=== PATIENT | male | born 1960 | race Caucasian/White ===

== ENCOUNTER 2020-05-25 08:21 | Inpatient (IN) ==
[2020-05-25] MEDS ORDERED: IOPAMIDOL 100 ML BOTTLE IV ONE ×2 (08:22→13:23)
[2020-05-25] MEDS ORDERED: fentaNYL 100 MCG/2 ML VIAL IV ONE (08:46)
[2020-05-25] MEDS ORDERED: ONDANSETRON 4 MG/2 ML VIAL IV ONE (08:46)
[2020-05-25] MEDS ORDERED: 0.9 % SODIUM CHLORIDE 1,000 ML IV ONE (08:46)
--- NOTE | 2020-05-25 08:50 | Emergency Department Note ---
Abdominal Pain HPI General Chief Complaint: Abdominal Pain Stated Complaint: my stomach hurts Time Seen by Provider: 05/25/20 08:24 Source: patient Mode of arrival: ambulatory Limitations: no limitations History of Present Illness HPI Narrative: Narrative: 60-year-old male no medical problems presents to the emergency department with generalized abdominal pain. Says not localized to one area says more in the center start in the epigastrium going down to his umbilicus. Is never had any abdominal surgeries. He does not take any medications. He does drink about 3-5 beers daily. He says never had any liver issues as far as he knows. He has no nausea no vomiting denies any fevers. Did have chills. Said the pain all started this morning when he woke up. Says it is a 6 out of 10 wrenching pain nonradiating. Otherwise no other complaints at this time including no fevers, chills, nausea, vomiting, headache, blurry vision, neck pain, back pain, chest pain, shortness of breath, changes in bowel movements, pain with urination, pain or tingling going down the arms or legs or generalized weakness Related Data Allergies Allergy/AdvReac Type Severity Reaction Status Date / Time No Known Drug Allergies Allergy Verified 07/24/19 07:52 Review of Systems ROS ROS Narrative: Narrative: All systems ED: reviewed and negative except as stated. [facility] Narrative Patient History Narrative: Narrative: Medical/Surgical/Family History All Active Problems (Updated 05/25/20 @ 08:50 by Get Cash DO) Abdominal pain (Acute) Thoracic degenerative disc disease (Chronic) Lumbar degenerative disc disease (Chronic) Prostatitis (Chronic) Libido, decreased (Chronic) Medical History Libido, decreased (Chronic) Prostatitis (Chronic) Surgical History No pertinent past surgical history (Chronic) Family History Father Type 2 diabetes mellitus Other No pertinent family history Social History Smoking Status: Current every day smoker Exam Narrative Narrative: Narrative: Vital signs noted General: Awake. Alert. No distress. Skin: Warm. Dry. No rash. HEENT: NCAT. PERRL. EOMI. No conjunctivitis. No nystagmus. No pharyngitis. Membranes moist. No otitis. No rhinitis. Neck: No PTP. Good ROM. No meningeal signs. No stridor. No thyromegaly. No JVD. Cardiovascular: RRR. No murmur. No rubs. No gallops. Respiratory: No respiratory distress. Breath sounds equal. Lungs clear. Gastrointestinal: Abdomen soft. Generalized abdominal tenderness not localized to a certain area. Mild guarding while palpating. No distention. Normal bowel sounds. No palpable organomegaly or masses. Back: No deformity. No CVAT. Musculoskeletal: No tenderness. No swelling. No erythema. No edema. Good peripheral pulses x 4 Lymphatic: No palpable adenopathy. Neurological: No focal neurological deficits observed. General Limitations: no limitations Course Vital Signs Vital signs: Vital Signs Temperature 97.9 F 05/25/20 08:22 Pulse Rate 115 H 05/25/20 08:22 Respiratory Rate 18 05/25/20 08:22 Blood Pressure 123/82 05/25/20 08:22 Pulse Oximetry (%) 94 05/25/20 08:22 Temperature 97.9 F 05/25/20 08:22 Pulse Rate 115 H 05/25/20 08:22 Respiratory Rate 18 05/25/20 08:22 Blood Pressure 123/82 05/25/20 08:22 Pulse Oximetry (%) 94 05/25/20 08:22 [facility] MDM Narrative Medical decision making narrative: Narrative: Patient looks well on exam. Although he is guarding on his abdominal exam. He does not see the doctor regularly and I am worried about possibly something more acute pathologic in the patient's abdomen. Patient does feel warm to touch she is tachycardic. We will give him IV fluids for rehydration help with the tachycardia we will give him fentanyl for abdominal pain as well as Zofran for nausea. We will get basic labs including a CAT scan of the abdomen pelvis for further evaluation. Patient still patient at the end of my shift and will be signed out pending results to the oncoming doctor. Please refer to their note for further plan and disposition. Discharge Plan Patient/Caregiver Discharge Instructions Pt seen by ASSOCIATE PROFESSOR OF MEDIA ARTS/PA only: No Clinical Impression: Abdominal pain Patient Disposition: Still a Patient Condition: Fair Follow up with: Telly Castillo ARNP [Primary Care Provider] -
[2020-05-25 09:46] LABS: Basophils # (Auto) 0.03 K/mcL (0.00-0.20); Basophils % (Auto) 0.2 % (0.0-2.0); Eosinophils # (Auto) 0 K/mcL (0.00-0.70); Eosinophils % (Auto) 0 % (0.0-7.0); Hematocrit 47.2 % (41.0-55.0); Hemoglobin 16.3 g/dL (13.5-16.5); Lymphocytes # (Auto) 1.28 K/mcL (1.50-4.80); Lymphocytes % (Auto) 8.2 % (15.0-49.0); Mean Cell Volume 90.8 fL (80.0-100.0); Mean Corpuscular HGB Conc 34.5 g/dL (31.0-36.0); Mean Platelet Volume 9.8 fL (7.4-10.4); Monocytes # (Auto) 0.76 K/mcL (0.10-0.90); Monocytes % (Auto) 4.8 % (1.0-12.0); Neutrophils % (Auto) 86.8 % (38.0-78.0); Platelet Count 253 K/mcL (140-440); Red Cell Distribution Width 12.9 % (11.5-14.5); WBC 15.7 K/mcL (4.5-11.0)
[2020-05-25 10:02] LABS: ALT/SGPT 25 U/L (<40); AST/SGOT 24 U/L (<40); Albumin/Globulin Ratio 1.4 (1.0-2.3); Alkaline Phosphatase 63 U/L (39-117); Bilirubin,Total 0.6 mg/dL (0.1-1.0); Blood Urea Nitrogen 15 mg/dL (8-23); Calcium 9.7 mg/dL (8.6-10.4); Carbon Dioxide 25 mmol/L (22-30); Chloride 99 mmol/L (96-108); Globulin 2.9 gm/dL (2.2-3.7); Glomerular Filtration Rate 81; Glucose 120 mg/dL (70-105)
--- NOTE | 2020-05-25 10:47 | Cat Scan Report ---
History: Generalized abdominal pain TECHNIQUE: The patient was imaged following oral and intravenous contrast scanning during the portal venous phase from the diaphragm through the symphysis pubis. Sagittal and coronal reformats were created. The radiation exposure was limited using dose reduction technology. FINDINGS: The liver and spleen are normal in size and homogeneous. The gallbladder and bile ducts are normal. There is no evidence of a mass or inflammation the pancreas. The adrenals are normal. The upper pole of left kidney there is a 1.5 cm simple cyst. The kidneys are otherwise normal and there is no kidney stone, mass or hydronephrosis. Scattered plaques are present along the wall of the distal abdominal aorta and common iliac arteries. The aorta is normal in caliber. The appendix is thickened and measures up to 1 cm in transverse dimension. The surrounding fat is somewhat streaky. There is no abscess and no appendicolith. Multiple diverticula are present in the descending and sigmoid colon. There is thickening of the wall of the mid sigmoid colon but no stranding of the adjacent fat. The wall measures up to 9 mm. No free fluid or abscess are present in the abdomen or pelvis. There is moderate arthritis at the L4-5 level with posterior bulge arthritis in the facets and hypertrophy of ligamentum flavum resulting in moderate spinal canal stenosis. Urinary bladder is normal. Prostate is mildly enlarged and contains a few calcifications in the transitional zone. Seminal vesicles are normal. No adenopathy is present. IMPRESSION: Thickened appendix. Early onset appendicitis is suspected. Diverticulosis Dr. Olson was called with the results Interpreted and Authenticated by: Thierno Lynn 05/25/20
[2020-05-25] MEDS ORDERED: PIPERACILLIN SODIUM/TAZOBACTAM 3.375 GM in DEXTROSE 5% IN WATER 50 ML IV ONE (10:51)
--- NOTE | 2020-05-25 11:13 | Emergency Department Note ---
Abdominal Pain HPI General Chief Complaint: Abdominal Pain Stated Complaint: my stomach hurts Time Seen by Provider: 05/25/20 08:24 Source: patient Mode of arrival: ambulatory Limitations: no limitations History of Present Illness HPI Narrative: Narrative: I took over care of this patient at [address] Cash. Related Data Allergies Allergy/AdvReac Type Severity Reaction Status Date / Time No Known Drug Allergies Allergy Verified 07/24/19 07:52 Review of Systems ROS ROS Narrative: Narrative: PFSH Narrative Patient History Narrative: Narrative: Medical/Surgical/Family History All Active Problems (Updated 05/25/20 @ 11:13 by Toñito Olson MD) Abdominal pain (Acute) Acute appendicitis (Acute) Thoracic degenerative disc disease (Chronic) Lumbar degenerative disc disease (Chronic) Prostatitis (Chronic) Libido, decreased (Chronic) Medical History Libido, decreased (Chronic) Prostatitis (Chronic) Surgical History No pertinent past surgical history (Chronic) Family History Father Type 2 diabetes mellitus Other No pertinent family history Social History Smoking Status: Current every day smoker Exam Narrative Narrative: Narrative: General Limitations: no limitations Course Vital Signs Vital signs: Vital Signs Temperature 97.9 F 05/25/20 08:22 Pulse Rate 115 H 05/25/20 08:22 Respiratory Rate 18 05/25/20 08:22 Blood Pressure 123/82 05/25/20 08:22 Pulse Oximetry (%) 94 05/25/20 08:22 Temperature 97.9 F 05/25/20 08:22 Pulse Rate 98 H 05/25/20 10:46 Respiratory Rate 18 05/25/20 08:22 Blood Pressure 129/83 05/25/20 10:46 Pulse Oximetry (%) 94 05/25/20 10:46 MDM MDM Narrative Medical decision making narrative: Narrative: I talked to the on-call surgeon and he will come and see the patient for admission. Lab Data Lab results reviewed: Yes I reviewed the patient's lab results. Result diagrams: 05/25/20 08:53 05/25/20 08:53 Labs: Lab Results 05/25/20 05/25/20 Range/Units 08:53 08:53 WBC 15.7 H (4.5-11.0) K/mcL RBC 5.20 (4.50-5.90) M/mcL Hgb 16.3 (13.5-16.5) g/dL Hct 47.2 (41.0-55.0) % MCV 90.8 (80.0-100.0) fL MCH 31.3 (26.0-34.0) pg MCHC 34.5 (31.0-36.0) g/dL RDW 12.9 (11.5-14.5) % Plt Count 253 (140-440) K/mcL MPV 9.8 (7.4-10.4) fL Neut % (Auto) 86.8 H (38.0-78.0) % Lymph % (Auto) 8.2 L (15.0-49.0) % Mason % (Auto) 4.8 (1.0-12.0) % Eos % (Auto) 0 (0.0-7.0) % Baso % (Auto) 0.2 (0.0-2.0) % Lymph # (Auto) 1.28 L (1.50-4.80) K/mcL Mason # (Auto) 0.76 (0.10-0.90) K/mcL Eos # (Auto) 0 (0.00-0.70) K/mcL Baso # (Auto) 0.03 (0.00-0.20) K/mcL Absolute Neutrophils 13.62 H (1.80-8.00) K/mcL Sodium 136 (133-145) mmol/L Potassium 4.2 (3.3-5.1) mmol/L Chloride 99 (96-108) mmol/L Carbon Dioxide 25 (22-30) mmol/L Anion Gap 12.0 (8.0-16.0) BUN 15 (8-23) mg/dL Creatinine 1.0 (0.7-1.2) mg/dL GFR Calculation 81 Glucose 120 H (70-105) mg/dL Calcium 9.7 (8.6-10.4) mg/dL Total Bilirubin 0.6 (0.1-1.0) mg/dL AST 24 (<40) U/L ALT 25 (<40) U/L Alkaline Phosphatase 63 (39-117) U/L Total Protein 6.9 (5.9-8.4) gm/dL Albumin 4.0 (3.2-5.2) gm/dL Globulin 2.9 (2.2-3.7) gm/dL Albumin/Globulin Ratio 1.4 (1.0-2.3) Lipase 28 (7-60) U/L Radiology Data Radiology results reviewed: Yes I reviewed the patient's radiology results. Radiology results narrative: CT was consistent with early appendicitis Discharge Plan Patient/Caregiver Discharge Instructions Pt seen by DOCTOR OF CHIROPRACTIC/PA only: No Clinical Impression: Abdominal pain, Acute appendicitis Patient Disposition: Xfer As Inpt ([facility]) Condition: Fair Follow up with: Telly Castillo ARNP [Nurse Practitioner] -
[2020-05-25] MEDS ORDERED: cefTRIAXone 2 GM in DEXTROSE 5% IN WATER 50 ML IV ONE (11:30)
[2020-05-25 11:35] LABS: Appearance,Urine CLEAR (Clear); Bilirubin,Urine Negative (Negative); Color,Urine STRAW; Culture Indicated,Urine No; Glucose,Urine (UA) Negative (Negative); Ketones,Urine Negative (Negative); Leukocyte Esterase,Urine Negative /ug (Negative); Nitrate,Urine Negative (Negative); Protein,Urine Negative (Negative); Specific Gravity,Urine 1.008 (1.000-1.035); Urine Blood Negative (Negative); Urobilinogen,Urine Negative
[2020-05-25 11:46] LABS: INR 0.9 (0.9-1.1); Prothrombin Time 12.1 sec (11.9-14.5)
[2020-05-25] MEDS ORDERED: ONDANSETRON 4 MG/2 ML VIAL IV PRN ×4 (11:46→20:47)
--- NOTE | 2020-05-25 11:55 | General Surg History&Physical ---
HPI History of Present Illness Patient information: Note initiated : 05/25/20 at 11:49 am Service Date, if different from initiated Date: [] Patient: Suraj Camejo a 60 y/o M admitted on for "My Stomach Hurts". Chief Complaint: abd pain 60 yo man 1+ PPD smoker and 3-5 drinks day pt presents with 1 day of RLQ pain. Pain is associated with loss of appetitie. No nausea, no vomiting. Worse with pressure to area. Oddly improved with walking ED: WBC elevated, CT shows 10cm dialated appendix History of present illness: Mr. Camejo is a 60 year old M Constitutional Constitutional: Absent frequent falls EENT Eyes: Absent tunnel vision Cardiovascular Cardiovascular: Absent dyspnea and syncope Respiratory Respiratory: Present cough Gastrointestinal Gastrointestinal: Present abdominal pain and constipation Musculoskeletal Musculoskeletal: Absent loss of height Integumentary Integumentary: Absent change in hair Neurological Neurological: Absent abnormal speech Psychiatric Psychiatric: Absent auditory hallucinations Endocrine Endocrine: Absent flushing Hematologic/Lymphatic Hematologic/Lymphatic: Absent easy bleeding PFSH PFSH All Active Problems (Updated 05/25/20 @ 11:55 by Jose Mix MD) Abdominal pain (Acute) Acute appendicitis (Acute) Thoracic degenerative disc disease (Chronic) Lumbar degenerative disc disease (Chronic) Prostatitis (Chronic) Libido, decreased (Chronic) Medical History Libido, decreased (Chronic) Prostatitis (Chronic) Surgical History No pertinent past surgical history (Chronic) Family History Father Type 2 diabetes mellitus Other No pertinent family history Social History household members: spouse marital status: occupational status: employed other: Has 3 children smoking status: Current every day smoker additional history: Parents healthy MEDS/ALLERGIES Home Medications and Allergies Home Medications Medication Instructions Recorded Confirmed Type No Known Home Meds 05/25/20 05/25/20 History Allergies Allergy/AdvReac Type Severity Reaction Status Date / Time No Known Drug Allergies Allergy Verified 07/24/19 07:52 Physical Examination Vital Signs Vital signs: Temp Pulse Resp BP Pulse Ox 36.6 C 99 H 18 122/86 95 05/25/20 08:22 05/25/20 11:16 05/25/20 08:22 05/25/20 11:16 05/25/20 11:16 General physical appearance General physical exam: other (NAD, good historian, MMM, trachea midline, distant breathsounds, RRR strong radial pulse, no abdominal scars, non distended, dull to percussion, no HSM tender over mcburney point with + rovsing sign. Neg bedshake test. mild reflexive gurading in RLQ, Periphery warm and well perfused) Results Labs Result diagrams: 05/25/20 08:53 05/25/20 08:53 Labs: Abnormal lab results 05/25/20 05/25/20 Range/Units 08:53 08:53 WBC 15.7 H (4.5-11.0) K/mcL Neut % (Auto) 86.8 H (38.0-78.0) % Lymph % (Auto) 8.2 L (15.0-49.0) % Lymph # (Auto) 1.28 L (1.50-4.80) K/mcL Absolute Neutrophils 13.62 H (1.80-8.00) K/mcL Glucose 120 H (70-105) mg/dL Diabetes panel 05/25/20 Range/Units 08:53 Sodium 136 (133-145) mmol/L Potassium 4.2 (3.3-5.1) mmol/L Chloride 99 (96-108) mmol/L Carbon Dioxide 25 (22-30) mmol/L BUN 15 (8-23) mg/dL Creatinine 1.0 (0.7-1.2) mg/dL Glucose 120 H (70-105) mg/dL Calcium 9.7 (8.6-10.4) mg/dL AST 24 (<40) U/L ALT 25 (<40) U/L Alkaline Phosphatase 63 (39-117) U/L Total Protein 6.9 (5.9-8.4) gm/dL Albumin 4.0 (3.2-5.2) gm/dL Calcium panel 05/25/20 Range/Units 08:53 Calcium 9.7 (8.6-10.4) mg/dL Albumin 4.0 (3.2-5.2) gm/dL Pituitary panel 05/25/20 Range/Units 08:53 Sodium 136 (133-145) mmol/L Potassium 4.2 (3.3-5.1) mmol/L Chloride 99 (96-108) mmol/L Carbon Dioxide 25 (22-30) mmol/L BUN 15 (8-23) mg/dL Creatinine 1.0 (0.7-1.2) mg/dL Glucose 120 H (70-105) mg/dL Calcium 9.7 (8.6-10.4) mg/dL Adrenal panel 05/25/20 Range/Units 08:53 Sodium 136 (133-145) mmol/L Potassium 4.2 (3.3-5.1) mmol/L Chloride 99 (96-108) mmol/L Carbon Dioxide 25 (22-30) mmol/L BUN 15 (8-23) mg/dL Creatinine 1.0 (0.7-1.2) mg/dL Glucose 120 H (70-105) mg/dL Calcium 9.7 (8.6-10.4) mg/dL Total Bilirubin 0.6 (0.1-1.0) mg/dL AST 24 (<40) U/L ALT 25 (<40) U/L Alkaline Phosphatase 63 (39-117) U/L Total Protein 6.9 (5.9-8.4) gm/dL Albumin 4.0 (3.2-5.2) gm/dL All other labs normal. A/P Assessment and plan (1) Acute appendicitis: Status: Acute Comment: 60 yo man with hx, exam, and imaging c/w acute appendicitis. Moderate leukocytosis at 15. Plan: Admit Ceftriaxone and metronidazole Scheduled for surgery this afternoon - lap appy possible conversion to open Risk of bleeding, infection, injury to structures, need to convert to open all discussed All questions answered pt ready to proceed Jose Mix MD Surgery Qualifiers: Acute appendicitis type: with localized peritonitis Appendicitis abscess presence: without abscess Appendicitis gangrene presence: with gangrene Appendicitis perforation presence: without perforation Qualified Code(s): K35.31 - Acute appendicitis with localized peritonitis and gangrene, without perforation Time Spent With Patient Time: Total time spent is greater than 50% in coordination of care (as documented) at patient's floor/unit and/or counseling patient:
[2020-05-25] MEDS ORDERED: metroNIDAZOLE 500 MG/100 ML BAG IV SCH ×2 (12:00→22:00)
[2020-05-25] MEDS ORDERED: morphine 4 MG/ML VIAL IV PRN ×2 (13:23→20:47)
[2020-05-25] MEDS ORDERED: ACETAMINOPHEN 325 MG TABLET PO SCH ×2 (13:23→20:47)
[2020-05-25] MEDS ORDERED: HEPARIN 5,000 UNIT/ML VIAL SQ SCH (14:00)
[2020-05-25] MEDS ORDERED: 0.9 % SODIUM CHLORIDE 10 ML SYRINGE IV SCH ×2 (14:00)
[2020-05-25] MEDS ORDERED: IPRATROPIUM/ALBUTEROL 3 ML AMPUL.NEB NEB ONE ×3 (17:23→17:25)
[2020-05-25] MEDS ORDERED: KETOROLAC 30 MG/ML VIAL ONE (18:30)
[2020-05-25] MEDS ORDERED: MIDAZOLAM 5 MG/5 ML VIAL ONE (18:30)
[2020-05-25] MEDS ORDERED: ONDANSETRON 4 MG/2 ML VIAL ONE (18:30)
[2020-05-25] MEDS ORDERED: ROCURONIUM 10 MG/ML ML IV ONE (18:30)
[2020-05-25] MEDS ORDERED: PROPOFOL 200 MG/20 ML VIAL IV ONE (18:30)
[2020-05-25] MEDS ORDERED: DEXAMETHASONE 10 MG/ML VIAL ONE (18:30)
[2020-05-25] MEDS ORDERED: SUCCINYLCHOLINE 20 MG/ML ML IV ONE (18:30)
[2020-05-25] MEDS ORDERED: LIDOCAINE HCL/PF 100 MG/5 ML SYRINGE IV ONE (18:30)
[2020-05-25] MEDS ORDERED: fentaNYL 250 MCG/5 ML VIAL IV ONE (18:30)
[2020-05-25] MEDS ORDERED: ePHEDrine 50 MG/ML AMPUL IV PRN (19:06)
[2020-05-25] MEDS ORDERED: IPRATROPIUM/ALBUTEROL 3 ML AMPUL.NEB NEB PRN (19:06)
[2020-05-25] MEDS ORDERED: METOPROLOL TARTRATE 5 MG/5 ML VIAL IV PRN (19:06)
[2020-05-25] MEDS ORDERED: diphenhydrAMINE 50 MG/ML VIAL IV PRN (19:06)
[2020-05-25] MEDS ORDERED: FLUMAZENIL 0.1 MG/ML ML IV PRN (19:06)
[2020-05-25] MEDS ORDERED: METHOCARBAMOL 1,000 MG/10 ML VIAL IV PRN (19:06)
[2020-05-25] MEDS ORDERED: ATROPINE SULFATE 0.4 MG/ML VIAL IV PRN (19:06)
[2020-05-25] MEDS ORDERED: fentaNYL 100 MCG/2 ML VIAL IV PRN (19:06)
[2020-05-25] MEDS ORDERED: PROMETHAZINE 25 MG/ML VIAL IV PRN (19:06)
[2020-05-25] MEDS ORDERED: MEPERIDINE 25 MG/ML SYRINGE IV PRN (19:06)
[2020-05-25] MEDS ORDERED: NALOXONE HCL 0.4 MG/ML VIAL IV PRN (19:06)
[2020-05-25] MEDS ORDERED: LACTATED RINGERS 1,000 ML IV SCH ×2 (19:15→20:47)
[2020-05-25] MEDS ORDERED: BUPIVACAINE W/EPI 0.25% 50 ML VIAL IJ ONE (19:17)
--- NOTE | 2020-05-25 20:07 | Brief Operative Note ---
Brief Operative Note Date of procedure: 05/25/20 Pre-op diagnosis: acute appendicitis Post-op diagnosis: other (acute gangrenous appendicitis) Procedure: Laproscopic appendectomy Grafts/Implants: No Anesthesia: GETA Findings: nonperforated but gangrenous appendicitis. Base of appendix healthy Complications: none Surgeon: Jose Mix Estimated blood loss (cc): 10 Specimens Removed/Pathology: other (appendix) Condition: stable Disposition: PACU
[2020-05-25] MEDS ORDERED: METHOCARBAMOL 750 MG TABLET PO SCH (20:47)
[2020-05-25] MEDS ORDERED: SENNOSIDES 1 TABLET PO SCH (21:00)
[2020-05-25] MEDS ORDERED: DOCUSATE SODIUM 100 MG CAPSULE PO SCH (21:00)
[2020-05-26] MEDS: metroNIDAZOLE 500 MG/100 ML BAG IV SCH ×2 (00:26→06:16)
[2020-05-26] MEDS: 0.9 % SODIUM CHLORIDE 10 ML SYRINGE IV SCH ×4 (00:27→21:16)
[2020-05-26] MEDS: LACTOBACILLUS 1 CAPSULE PO SCH ×3 (00:27→21:15)
[2020-05-26] MEDS: HEPARIN 5,000 UNIT/ML VIAL SQ SCH ×4 (00:27→21:16)
[2020-05-26 07:57] LABS: Basophils # (Auto) 0.02 K/mcL (0.00-0.20); Basophils % (Auto) 0.1 % (0.0-2.0); Eosinophils # (Auto) 0 K/mcL (0.00-0.70); Eosinophils % (Auto) 0 % (0.0-7.0); Hematocrit 42.9 % (41.0-55.0); Hemoglobin 14.2 g/dL (13.5-16.5); Lymphocytes # (Auto) 0.86 K/mcL (1.50-4.80); Lymphocytes % (Auto) 5.7 % (15.0-49.0); Mean Cell Volume 93.3 fL (80.0-100.0); Mean Corpuscular HGB Conc 33.1 g/dL (31.0-36.0); Monocytes % (Auto) 2.7 % (1.0-12.0); Neutrophils % (Auto) 91.5 % (38.0-78.0); Platelet Count 207 K/mcL (140-440); Red Cell Distribution Width 13.2 % (11.5-14.5); WBC 15.1 K/mcL (4.5-11.0)
[2020-05-26 08:39] LABS: Blood Urea Nitrogen 12 mg/dL (8-23); Calcium 8.2 mg/dL (8.6-10.4); Carbon Dioxide 24 mmol/L (22-30); Chloride 103 mmol/L (96-108); Glomerular Filtration Rate 92; Glucose 127 mg/dL (70-105)
[2020-05-26] MEDS ORDERED: MAGNESIUM SULFATE 8.12 MEQ/2 ML VIAL IV ONE (08:53)
[2020-05-26] MEDS ORDERED: cefTRIAXone 2 GM in DEXTROSE 5% IN WATER 50 ML IV SCH (09:00)
[2020-05-26] MEDS ORDERED: MAGNESIUM SULFATE 2 GM/50 ML BAG IV ONE (09:00)
[2020-05-26] MEDS: POLYETHYLENE GLYCOL 3350 17 GM PACKET PO SCH (09:04)
--- NOTE | 2020-05-26 09:44 | General Surgery Progress Note ---
SUBJECTIVE Subjective Patient information: Note initiated : 05/26/20 at 9:41 am Service Date, if different from initiated Date: [] Patient: Suraj Cameoj a 60 y/o M admitted on 05/25/20 for "My Stomach Hurts". Chief Complaint: appendicitis S: feeling much improved this am, wants a cigarette O: VSS NAD breathing easily on RA RRR Abd soft, nondistended, minimally tender, wounds CDI periphery warm and well perfused WBC this am 15 A/P 60 yo man POD1 after lap appy for gangrenous appendicitis. clinically well Continue IV abx until wbc normal hx of etoh dependece OK for beer in hospital - of note etoh and metronidazole together can sicken pts. Stoping ceftriaxone and metronidazole abx -> pip/beto OK for general diet Ok to ambulate Jose Mix MD Surgery Constitutional Vitals: Vital Signs Temp Pulse Resp BP Pulse Ox 36.3 C 90 20 108/69 95 05/26/20 08:00 05/26/20 08:00 05/26/20 08:00 05/26/20 08:00 05/26/20 08:00 Period Temp Pulse Resp BP Sys/Gaona Pulse Ox Last 24 Hr 36.1 C-37.3 C 88-117 16-20 95-129/56-89 90-98 Intake and Output 05/25/20 05/26/20 05/26/20 21:59 05:59 13:59 Intake Total 9369 251 0051 Output Total 1070 575 Balance 730 -375 1380 Weight 79.152 kg Intake & Output: Intake & Output 05/25/20 05/26/20 05/26/20 21:59 05:59 13:59 Intake Total 6945 569 1101 Output Total 1070 575 Balance 730 -375 1380 Weight 79.152 kg Intake: IV 1800 100 100 Lactated Ringers 1,000 ml @ 20 1800 mls/hr IV .Q24H [facility] Rx#: [id number] Oral 100 1280 Output: Urine Catheter Amount 600 Uretheral (Tripp) 200 Void Amount 450 575 Estimated Blood Loss 20 Other: Meal Breakfast Percent of Meal Consumed 75% Feeding Ability Assist with Tray Set Up Urine Appearance Uretheral (Tripp) Clear Urine Color Uretheral (Tripp) Bright Yellow A/P Time Spent With Patient Time: Total time spent is greater than 50% in coordination of care (as documented) at patient's floor/unit and/or counseling patient:
[2020-05-26] MEDS ORDERED: 0.9 % SODIUM CHLORIDE 1,000 ML IV SCH (09:45)
[2020-05-26] MEDS: PIPERACILLIN SODIUM/TAZOBACTAM 3.375 GM in DEXTROSE 5% IN WATER 50 ML IV SCH ×3 (11:40→23:49)
[2020-05-27] MEDS: HEPARIN 5,000 UNIT/ML VIAL SQ SCH (05:33)
[2020-05-27] MEDS: 0.9 % SODIUM CHLORIDE 10 ML SYRINGE IV SCH (05:33)
[2020-05-27] MEDS: PIPERACILLIN SODIUM/TAZOBACTAM 3.375 GM in DEXTROSE 5% IN WATER 50 ML IV SCH (05:33)
[2020-05-27 06:58] LABS: Basophils # (Auto) 0.03 K/mcL (0.00-0.20); Basophils % (Auto) 0.3 % (0.0-2.0); Eosinophils # (Auto) 0.06 K/mcL (0.00-0.70); Eosinophils % (Auto) 0.7 % (0.0-7.0); Hematocrit 38.8 % (41.0-55.0); Hemoglobin 12.7 g/dL (13.5-16.5); Lymphocytes # (Auto) 2.16 K/mcL (1.50-4.80); Lymphocytes % (Auto) 24.9 % (15.0-49.0); Mean Cell Volume 93.9 fL (80.0-100.0); Mean Corpuscular HGB Conc 32.7 g/dL (31.0-36.0); Mean Platelet Volume 9.6 fL (7.4-10.4); Monocytes # (Auto) 0.48 K/mcL (0.10-0.90); Monocytes % (Auto) 5.5 % (1.0-12.0); Neutrophils % (Auto) 68.6 % (38.0-78.0); Platelet Count 193 K/mcL (140-440); RBC 4.13 M/mcL (4.50-5.90); Red Cell Distribution Width 13.4 % (11.5-14.5); WBC 8.7 K/mcL (4.5-11.0)
[2020-05-27 07:47] LABS: Blood Urea Nitrogen 17 mg/dL (8-23); Carbon Dioxide 26 mmol/L (22-30); Chloride 106 mmol/L (96-108); Glomerular Filtration Rate 81; Glucose 92 mg/dL (70-105)
[2020-05-27] MEDS: LACTOBACILLUS 1 CAPSULE PO SCH (09:14)
[2020-05-27] MEDS: POLYETHYLENE GLYCOL 3350 17 GM PACKET PO SCH (09:15)
--- NOTE | 2020-05-27 09:30 | Discharge Summary ---
Discharge Provider Provider Patient information: Note initiated : 05/27/20 at 9:26 am Service Date, if different from initiated Date: [] Patient: Suraj Camejo 60 y/o M admitted on 05/25/20 for "My Stomach Hurts". Chief Complaint: [] Date of admission: 05/25/20 12:58 Discharge date: 05/27/20 Consults: 05/25/20 Consult to Physician [CONS] Stat Comment: Consulting Provider: Jose Mix Reason For Exam: Physician to Consult COURSE Hospital Course Hospital course: 60 yo smoker presented to ER with RLQ and found to have a moderate leukocytosis and dilated appendix c/w acute appendicitis. He was taken urgently to OR for Lap appy where was found to have gangrenous appendicitis. Post op he did well with normalization of WBC by POD2. He was discharged with additional 5 days of abx - amp/sulb Discharge diagnosis: Acute gangrenous appendicitis Secondary discharge diagnosis: Etoh dependence Tobacco dependence Reason for admission: abdominal myles Procedures: Lap Appy - 05/25/20 Time spent discussing smoking cessation with patient: 3 to 10 minutes Time Spent with Patient Time attestation: Total time spent providing and/or coordinating discharge services: Time spent: Less than 30 minutes Physical Examination Vital Signs Vital signs: Temp Pulse Resp BP Pulse Ox 35.9 C L 89 12 105/66 95 05/27/20 08:00 05/27/20 08:00 05/27/20 08:00 05/27/20 08:00 05/27/20 08:00 General physical appearance General physical exam: other (Well appering, NAD, breathing easily on RA, RRR, abd soft minimally tender, nondistended, wounds CDI. periphery warm ) Discharge Plan Patient/Caregiver Discharge Instructions Activity: increase activity as tolerated Diet: Regular Diet Activity Restrictions/Additional Instructions: 1) OK to shower, pat wounds dry afterwards 2) OK to soak in water ie baths and hot tub 2 weeks after surgery 3) OK to resume a regular diet but start with easy to digest foods 4) No lifting over 15lbs for 6 weeks to prevent hernia formation. No lifting over 30lbs for 3 months after surgery 5) Ok to resume you usual activity All sutures are internal and will absorb on their own Prescriptions: New acetaminophen [Tylenol] 325 mg Tablet 650 mg PO Q6HP Qty: 30 RF: 0 methocarbamol 750 mg Tablet 750 mg PO Q6HP Qty: 16 RF: 0 Polyethylene Glycol 3350 [Miralax] 17 gm PO DAILY Qty: 7 RF: 0 oxycodone 5 mg tablet 5 mg PO Q4H PRN (Reason: pain) Qty: 10 RF: 0 amoxicillin-pot clavulanate [Augmentin] 875-125 mg tablet 1 tab PO Q12H Qty: 10 RF: 0 No Action No Known Home Meds RF: 0 Follow Up Plan Follow up with: Telly Castillo ARNP [Nurse Practitioner] - Jose Mix MD [Physician] - (follow up appt in 2 weeks) Patient Disposition: Home, Self-Care Prognosis: Fair I certify that the patient requires SNF services: No Overall status at discharge: patient is progressing back to baseline Discharge Orders: Discharge Order (Routine); Ordered 05/27/20 Ordered By: Jose Mix Pending Pending Pending: Resuscitation Status Full Code Diet Regular Diet Start SunMay 26 0935 Acetaminophen (Tylenol) 650 mg PO Q6HP NORIS; Protocol Last Admin: 05/26/20 19:13 Dose: 650 mg Documented by: ERROL Heparin Sodium (Porcine) (Heparin) 5,000 unit SQ Q8 NORIS Last Admin: 05/27/20 05:33 Dose: Not Given Documented by: Admin: 05/26/20 21:16 Dose: Not Given Documented by: Admin: 05/26/20 13:36 Dose: Not Given Documented by: Admin: 05/26/20 06:17 Dose: Not Given Documented by: Admin: 05/26/20 00:27 Dose: Not Given Documented by: ERROL Piperacillin Sod/Tazobactam (Sod 3.375 gm/ Dextrose) 50 mls @ 100 mls/hr IV Q6H NORIS; Protocol Last Infusion: 05/27/20 06:44 Dose: 0 mls/hr Documented by: Admin: 05/27/20 05:33 Dose: 100 mls/hr Documented by: Infusion: 05/27/20 00:19 Dose: 100 mls/hr Documented by: Admin: 05/26/20 23:49 Dose: 100 mls/hr Documented by: Infusion: 05/26/20 17:56 Dose: 100 mls/hr Documented by: Admin: 05/26/20 17:26 Dose: 100 mls/hr Documented by: Infusion: 05/26/20 12:10 Dose: 0 mls/hr Documented by: Admin: 05/26/20 11:40 Dose: 100 mls/hr Documented by: JAE Sodium Chloride (Sodium Chloride 0.9%) 1,000 mls @ 25 mls/hr IV .Q24H [facility] Last Infusion: 05/27/20 09:25 Dose: 0 mls/hr Documented by: Admin: 05/26/20 11:41 Dose: 25 mls/hr Documented by: JAE Lactobacillus Rhamnosus (Culturelle) 1 cap PO BID [facility] Last Admin: 05/27/20 09:14 Dose: 1 cap Documented by: Admin: 05/26/20 21:15 Dose: 1 cap Documented by: Admin: 05/26/20 09:04 Dose: 1 cap Documented by: Admin: 05/26/20 00:27 Dose: Not Given Documented by: ERROL Methocarbamol (Robaxin) 750 mg PO Q6HP [facility] Last Admin: 05/26/20 19:13 Dose: 750 mg Documented by: ERROL Polyethylene Glycol (Miralax) 17 gm PO DAILY [facility] Last Admin: 05/27/20 09:15 Dose: Not Given Documented by: Admin: 05/26/20 09:04 Dose: 17 gm Documented by: TOMASA Sodium Chloride (Saline Flush) 10 ml IV Q8 [facility] Last Admin: 05/27/20 05:33 Dose: Not Given Documented by: Admin: 05/26/20 21:16 Dose: Not Given Documented by: Admin: 05/26/20 13:36 Dose: Not Given Documented by: Admin: 05/26/20 06:16 Dose: Not Given Documented by: Admin: 05/26/20 00:27 Dose: Not Given Documented by: ERROL Shift Summary 05/27/20 04:25 Shift Summary by Marcie Thomas Pt slept off & on thru the night. Up ad lupillo in room, voiding in toilet. Minimal pain, had meds once. Pt has hx of ETOH & smoking. ordered beer daily; he has refused all offers. MIV continues to deter pt from going outside to sneak a cigarette. BP running a 90's over 60's, but asymptomatic. Hoping to d/c home today. Initialized on 05/27/20 04:25 - END OF NOTE
--- NOTE | 2020-05-27 13:15 | Surgical Pathology Report ---
Histology Microscopic Diagnosis Specimen A- APPENDIX, APPENDECTOMY: -- ACUTE GANGRENOUS APPENDICITIS. (RLF:sln) Procedural Impression Appendicitis. Gross Description Received in formalin labeled with the patient information and designated as appendix, is a 10.1 cm long by up to 1.2 cm diameter purple-grove appendix with up to 1.1 cm of attached yellow-grove adipose tissue. The proximal margin is closed with a staple line. Galvez-grove exudate is present on the surface of the appendix. The proximal margin is inked black. Transport Analyst sections submitted in one cassette. (KGW:sln) Electronically Signed Sahwna Baron MD, FCAP Electronically Signed 05/27/2020 1:14 PM
--- NOTE | 2020-05-27 15:27 | Operative Note ---
DATE OF OPERATION: 05/25/2020 PREOPERATIVE DIAGNOSIS: Acute appendicitis. POSTOPERATIVE DIAGNOSIS: Acute gangrenous appendicitis. PROCEDURE: Laparoscopic appendectomy. SURGEON: Jose Mix MD KEYBOARD OPERATOR: None. INDICATIONS: This is a 60-year-old man who presented to the Emergency Department with right lower quadrant pain that has been present for nearly a day. On CT scan, he was found to have a dilated appendix and he had a moderately elevated leukocytosis at 15. He was taken to the operating room. FINDINGS: Acutely inflamed and gangrenous appendix. DESCRIPTION OF PROCEDURE: The patient was brought to the operating room. He was prepped and draped in the usual sterile fashion. A timeout was completed. Entry into the abdomen was performed using Bill cutdown technique. A small vertically oriented incision was carried through the superior umbilical cord down through the subcutaneous tissues until the linea alba was identified. The linea alba was grasped with a Jannette clamp and elevated. Two retention sutures were placed on either side of it. The clamp was removed. The sutures were brought taut and the linea alba was split. A blunt clamp facilitated entry into the abdomen. Bill port was then placed without incident and the abdomen was insufflated. Two 5 mm ports were then placed, one in the left lower quadrant and the other in the suprapubic region, being careful to avoid the dome of the bladder. Inspecting the abdomen, there was no purulence or free fluid. The right colon was readily identified and this was traced to the cecum and the appendix was readily identified. The appendix had multiple inflammatory adhesions to the adjacent tissue, which was easily bluntly dissected free. The mesoappendix was grasped and elevated and a window was created through the mesoappendix near the base of the appendix. A 2.5 mm laparoscopic JIMBO stapler load was used to divide the mesoappendix and then an additional identical load was used to divide the appendix off the cecum, taking with it a small cuff, perhaps 1-2 mm of healthy cecum. There was some minimal bleeding, which was controlled with a clip and the blood and small amount of fluid in the area was suctioned without incident. The appendix was placed in EndoCatch bag, and later removed from the abdomen via the umbilical port site. Next, the pelvis as well as right upper quadrant were irrigated and suctioned dry. Hemostasis was confirmed to be in place. The 5 mm ports were then withdrawn under direct visualization and the Bill port was then removed. The abdominal wall defect at the umbilicus was closed using 0 Vicryl [id number] suture as well as tying together the two retention sutures. Local anesthetic was infiltrated into the wounds. The wounds themselves were copiously irrigated and skin was closed using monofilament absorbable sutures in a subcuticular fashion. ESTIMATED BLOOD LOSS: Approximately 5 mL. COMPLICATIONS: None. IMPLANTS: None. SPECIMENS: Vermiform appendix. [email or web address] Job ID: [id number] Doc ID: [id number] Jose Mxi
== END 2020-05-27 10:43 | disposition home or self-care (01) | DRG 343 ==
LOC: ED 08:21 → MEDSUR 12:58
PROVIDERS: ADMIT Surgery; ATTEND Surgery